=== PATIENT | female | born 1970 | race Caucasian/White ===

== ENCOUNTER 2017-04-24 07:37 | Emergency (ER) | payer BC ==
--- NOTE | 2017-04-24 07:58 | ER Document Report ---
ED Hip Pain/Injury - General Chief Complaint: Hip Pain Stated Complaint: RIGHT HIP PAIN Time Seen by Provider: 04/24/17 07:46 Mode of Arrival: Ambulatory Information source: Patient Notes: Pt is a 46 year old female who presents to the ER today for right hip/pelvis pain that woke her up from sleep last night. Pt states she's had bursitis in the left hip due to injury, but never in the right and denies injury to the right. She denies radiation of the pain down the leg or any numbness/tingling. She denies fever/chills. TRAVEL OUTSIDE OF THE [place] IN LAST 30 DAYS: No - Related Data Allergies/Adverse Reactions: acetaminophen [From Darvocet-N 100] Allergy (Verified 04/24/17 07:42) Fever aspirin [Aspirin] Allergy (Verified 04/24/17 07:42) Hallucinations morphine Allergy (Verified 04/24/17 07:42) propoxyphene napsylate [From Darvocet-N 100] Allergy (Verified 04/24/17 07:42) Fever Past Medical History - General Information source: Patient - Social History Smoking Status: Never Smoker Chew tobacco use (# tins/day): No Frequency of alcohol use: Occasional Drug Abuse: None Family History: Arthritis, DM, Hyperlipidemia, Hypertension, Malignancy, Thyroid Disfunction Pulmonary Medical History: Reports: Hx Bronchitis, Hx Pneumonia Renal/ Medical History: Reports: Hx Kidney Stones. Denies: Hx Peritoneal Dialysis Malignancy Medical History: Reports: Hx Breast Cancer, Hx Leukemia - all, Hx Lymphoma - [facility] Medical History: Reports: Hx Colonoscopy Musculoskeltal Medical History: Reports Hx Arthritis Past Surgical History: Reports: Hx Breast Surgery - lumpectomy, Hx Hysterectomy - 2008, Hx Kidney (Renal Surgery) - LITHOTRIPSY, Hx Nose Surgery, Hx Orthopedic Surgery - R hand, - Immunizations Immunizations up to date: Yes Hx Diphtheria, Pertussis, Tetanus Vaccination: Yes - 2014 Review of Systems - Review of Systems Constitutional: No symptoms reported EENT: No symptoms reported Cardiovascular: No symptoms reported Respiratory: No symptoms reported Gastrointestinal: No symptoms reported Genitourinary: No symptoms reported Female Genitourinary: No symptoms reported Musculoskeletal: See HPI Skin: No symptoms reported Hematologic/Lymphatic: No symptoms reported Neurological/Psychological: No symptoms reported Physical Exam - Vital signs Vitals: Temp Pulse Resp BP Pulse Ox 97.7 F 92 16 119/60 97 04/24/17 07:40 04/24/17 07:40 04/24/17 07:40 04/24/17 07:40 04/24/17 07:40 - Notes Notes: PHYSICAL EXAMINATION: GENERAL: Well-appearing and in no acute distress. HEAD: Atraumatic, normocephalic. EYES: Pupils equal round and reactive to light, extraocular movements intact, sclera anicteric, conjunctiva are normal. NECK: Normal range of motion, supple without lymphadenopathy LUNGS: CTAB and equal. No wheezes rales or rhonchi. HEART: Regular rate and rhythm without murmurs ABDOMEN: Soft, no tenderness. No guarding, no rebound BACK: no vertebral tenderness, normal ROM GI/: no CVA tenderness EXTREMITIES: mildly tender to lateral right hip, Normal range of motion, no pitting edema. No cyanosis. NEUROLOGICAL: Cranial nerves grossly intact. Normal sensory/motor exams. PSYCH: Normal mood, normal affect. SKIN: Warm, Dry, normal turgor, no rashes or lesions noted Course - Re-evaluation Re-evalutation: 04/24/17 11:10 pelvis x ray with hip and SI joints negative for any acute pathology, pt given muscle relaxer and mobic for the pain. - Vital Signs Vital signs: Temp Pulse Resp BP Pulse Ox 97.9 F 89 20 118/52 L 98 04/24/17 09:13 04/24/17 09:13 04/24/17 09:13 04/24/17 09:13 04/24/17 09:13 Discharge - Discharge Clinical Impression: Right hip pain Condition: Stable Disposition: HOME, SELF-CARE Additional Instructions: Return immediately for any new or worsening symptoms. Follow up with primary care provider, call tomorrow to make followup appointment. Prescriptions: Meloxicam [Mobic 15 mg Tablet] 15 mg PO DAILY #14 tablet Methocarbamol [Robaxin 500 mg Tablet] 500 mg PO QID PRN #20 tablet PRN Reason:
[2017-04-24] MEDS ORDERED: MELOXICAM 15 MG TABLET PO ONE (08:51)
[2017-04-24 09:28] VITALS: BP 118/52
--- NOTE | 2017-04-24 10:00 | RADIOLOGY REPORT (SQ) ---
EXAM DESCRIPTION: PELVIS W/OBLIQUES COMPLETED DATE/TIME: 04/24/2017 8:14 am REASON FOR STUDY: right hip pain, pelvis pain, si joint pain COMPARISON: None. NUMBER OF VIEWS: Four views. TECHNIQUE: AP and 3 oblique views of the pelvis. LIMITATIONS: None. FINDINGS: MINERALIZATION: Normal. HIPS: No acute fracture or dislocation. No worrisome bone lesions. PELVIS AND SACRUM: No acute fracture or dislocation. No worrisome bone lesions. PUBIS AND ISCHIUM: No acute fracture. LOWER LUMBAR SPINE: No significant findings as visualized. SOFT TISSUES: No findings. OTHER: No other significant finding. IMPRESSION: NEGATIVE STUDY OF THE PELVIS. TECHNICAL DOCUMENTATION: JOB ID: [id number] [employer]- All Rights Reserved
== END 2017-04-24 09:27 | disposition home or self-care (01) ==
LOC: ER 07:37
DX: M25.551 Pain in right hip (principal); Z88.6 Allergy status to analgesic agent; Z88.5 Allergy status to narcotic agent; Z85.3 Personal history of malignant neoplasm of breast; Z85.71 Personal history of Hodgkin lymphoma; Z85.6 Personal history of leukemia
CPT/HCPCS: 72190; 99283

== ENCOUNTER → 2017-05-15 | Outpatient (CLI) | payer BC ==
--- NOTE | 2017-05-15 13:28 | RADIOLOGY REPORT (SQ) ---
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 Images reviewed with lung, soft tissue and bone windows. Reconstructed coronal and sagittal MPR images reviewed. All images stored on PACS. All CT scanners at this facility use dose modulation, iterative reconstruction, and/or weight based d osing when appropriate to reduce radiation dose to as low as reasonably achievable (ALARA). [facility]: Dose Right [facility]: CareDose [facility]: Dose Right [facility]: Teradose 4D [facility]: Parkinsor CONTRAST TYPE AND DOSE: 62 cc Isovue 370- low osmolar. RENAL FUNCTION: Creatinine 0.7 BUN 12 RADIATION DOSE: Total exam DLP 613 mGy cm. LIMITATIONS: None. FINDINGS: LUNGS AND PLEURA: No opacities, nodules, masses. No pneumothorax. No effusions. HILAR AND MEDIASTINAL STRUCTURES: No identified masses or abnormal nodes. HEART AND VASCULAR STRUCTURES: No aneurysm or dissection. No central pulmonary emboli. No pericardi al effusion. HARDWARE: None in the chest. UPPER ABDOMEN: See separate report of the CT of the abdomen. THYROID AND OTHER SOFT TISSUES: No masses. No adenopathy. BONES: No significant finding. OTHER: No other significant finding. IMPRESSION: NORMAL CT OF THE CHEST WITH IV CONTRAST. TECHNICAL DOCUMENTATION: JOB ID: [id number] Quality ID # [id number]: Final reports with documentation of one or more dose reduction techniques (e.g., Au tomated exposure control, adjustment of the mA and/or kV according to patient size, use of iterative reconstruction technique) 2010 [employer]- All Rights Reserved
--- NOTE | 2017-05-15 13:37 | RADIOLOGY REPORT (SQ) ---
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 No oral contrast. Images reviewed with lung, soft tissue, and bone windows. Reconstructed coronal and sagittal MPR images reviewed. Delayed images for evaluation of the urinary system also acquired. All images stored on PACS. All CT scanners at this facility use dose modulation, iterative reconstruction, and/or weight based d osing when appropriate to reduce radiation dose to as low as reasonably achievable (ALARA). [facility]: Dose Right [facility]: CareDose [facility]: Dose Right [facility]: Teradose 4D [facility]: [employer] CONTRAST TYPE AND DOSE: contrast/concentration: Isovue 370.00 mg/ml; Total Contrast Delivered: 62.0 ml; Total Saline Delivered: 65.0 ml RENAL FUNCTION: Creatinine 0.7 BUN 12 RADIATION DOSE: Up-to-date CT equipment and radiation dose reduction techniques were employed. CTDIv ol: 4.4 - 4.5 mGy. DLP: 613 mGy-cm.. LIMITATIONS: None. FINDINGS: LOWER CHEST: See separate report of the CT of the chest. LIVER: Normal size. No masses. No dilated ducts. SPLEEN: Normal size. No focal lesions. PANCREAS: No masses. No significant calcifications. No adjacent inflammation or peripancreatic fluid collections. Pancreatic duct not dilated. GALLBLADDER: No identified stones by CT criteria. No inflammatory changes to suggest cholecystitis. ADRENAL GLANDS: No significant masses or asymmetry. RIGHT KIDNEY AND URETER: No solid masses. No significant calcifications. No hydronephrosis or hyd roureter. LEFT KIDNEY AND URETER: No solid masses. No significant calcifications. No hydronephrosis or hydr oureter. AORTA AND VESSELS: No aneurysm. No dissection. Renal arteries, SMA, celiac without stenosis. RETROPERITONEUM: No retroperitoneal adenopathy, hemorrhage or masses. BOWEL AND PERITONEAL CAVITY: No masses or inflammatory changes. No free fluid or peritoneal masses. APPENDIX: Not identified. PELVIS: No mass. No free fluid. Normal bladder. ABDOMINAL WALL: No masses. No hernias. BONES: No significant or acute findings. OTHER: No other significant finding. IMPRESSION: NO SIGNIFICANT OR ACUTE FINDING IN THE ABDOMEN OR PELVIS ON CT SCAN WITH IV CONTRAST. TECHNICAL DOCUMENTATION: JOB ID: [id number] Quality ID # 436: Final reports with documentation of one or more dose reduction techniques (e.g., Au tomated exposure control, adjustment of the mA and/or kV according to patient size, use of iterative reconstruction technique) 2010 [employer]- All Rights Reserved
== END ==
LOC: RAD 10:03
PROVIDERS: ATTEND Internal Medicine
DX: C81.18 Nodular sclerosis Hodgkin lymphoma, lymph nodes of multiple sites (principal)
CPT/HCPCS: 71260; 74177

== ENCOUNTER → 2017-05-26 | Outpatient (CLI) | payer BC ==
--- NOTE | 2017-05-26 11:50 | RADIOLOGY REPORT (SQ) ---
EXAM DESCRIPTION: MRI RT LOWER JOINT WITHOUT COMPLETED DATE/TIME: 05/26/2017 8:29 am REASON FOR STUDY: RIGHT HIP PAIN (M25.551) M25.551 PAIN IN RIGHT HIP COMPARISON: None. TECHNIQUE: Righthip images acquired and stored on PACS. Multiplanar images to include fat sensitive sequences as T1, fluid sensitive sequences as T2/STIR and gradient echo sequences. Large FOV fat and fluid sensitive sequences include pelvis and opposite hip. LIMITATIONS: None. FINDINGS: BONE CORTEX AND MARROW: No generalized marrow replacement. No occult fracture. No worriso me bone lesions. RIGHT HIP: FEMORAL HEAD: No occult fracture. No osteophytes or subchondral cysts. Normal sphericity of femoral h ead/neck junction. No acetabular dysplasia. No evidence femoroacetabular impingement. No significant effusion. ACETABULUM: Normal morphology of the bony acetabulum. There is subcortical edema along the anterior and mid right acetabular rim adjacent to a small anterior labral tear. This is best shown on axial s tir series 12, image 9, sagittal series 10, image 14, and coronal series 11, images 9-12. LABRUM: Small anterior labral tear on coronal series 11, image 9, and axial series 12, image 11. No paralabral cyst. Adjacent subcortical marrow edema in the acetabular roof TROCHANTER: No trochanteric bursal effusion. No edema/fluid at the insertions of the gluteus medius and gluteus minimus. LEFT HIP: Limited evaluation. No worrisome bone lesions. No significant effusion. PELVIS, LOWER LUMBAR SPINE, SACROILIAC JOINTS: PELVIS : No insufficiency/stress fractures. No significant degenerative changes. Sacroiliac joints normal. L SPINE: No significant osteophytes or degenerative changes of the visualized lumbar spine. MUSCLES AND SOFT TISSUES: Adductors and piriformis normal. Abductors and greater trochanteric bursa n ormal without edema or fluid. Iliopsoas bursa without fluid. Hamstring attachments without edema or t ear. PELVIC SOFT TISSUES: Post hysterectomy. Normal size ovaries with a 1.9 cm right ovarian cyst. Physi ologic pelvic fluid. SCIATIC NERVE: Identified, without masses or abnormal signal. OTHER: No other significant finding. IMPRESSION: No marrow signal abnormalities worrisome for occult fracture or bony metastatic disease. Small anterior right hip labral tear with adjacent subcortical edema in acetabular bony rim. TECHNICAL DOCUMENTATION: JOB ID: [id number] [employer]- All Rights Reserved
== END ==
LOC: RAD 06:49
PROVIDERS: ATTEND Internal Medicine
DX: C81.18 Nodular sclerosis Hodgkin lymphoma, lymph nodes of multiple sites (principal); C50.012 Malignant neoplasm of nipple and areola, left female breast

== ENCOUNTER → 2017-07-06 | Day surgery (SDC) | payer BC ==
--- NOTE | 2017-07-06 16:22 | RADIOLOGY REPORT (SQ) ---
EXAM DESCRIPTION: ARTHRO HIP INJ W/ANESTHESIA; FLUORO/NEEDLE PLACEMENT COMPLETED DATE/TIME: 07/06/2017 2:18 pm REASON FOR STUDY: RIGHT HIP PAIN (M25.551) M25.551 PAIN IN RIGHT HIP COMPARISON: CT abdomen pelvis 05/15/2017 FLUOROSCOPY TIME: 16 seconds 3 digital radiographic images saved to PACS. LIMITATIONS: None. PROCEDURE: Procedure, risks, benefits and alternatives explained to patient who then gave written c onsent. The right hip was marked and a time-out was called for correct marking verification. Entry site marked using fluoroscopic guidance. Hip prepped and draped using sterile technique. Local ane sthesia achieved using 6 mL of 1% lidocaine injection. 22 gauge spinal needle introduced into the zainab int space under direct fluoroscopic visualization. Non-ionic contrast instilled to confirm intra-art icular position. Dilute gadolinium solution then injected. Needle removed and entry site covered w ith sterile bandage. No immediate complications noted. TECHNIQUE: Digital images acquired during fluoroscopy and stored on PACS. Patient immediately take n to the MR suite for additional imaging. INJECTION LOCATION: Right hip joint CONTRAST TYPE AND AMOUNT: 1 mL of Isovue-300 was injected to confirm intra-articular needle placement followed by 9 mL of dilute gadolinium for MR arthrogram IMPRESSION: SUCCESSFUL NEEDLE PLACEMENT AND INJECTION FOR RIGHT HIP MR ARTHROGRAM. COMMENT: Quality ID 145: Final reports for procedures using fluoroscopy that document radiation exp osure indices, or exposure time and number of fluorographic images (if radiation exposure indices are not available) TECHNICAL DOCUMENTATION: JOB ID: [id number] [employer]- All Rights Reserved
--- NOTE | 2017-07-06 16:33 | RADIOLOGY REPORT (SQ) ---
EXAM DESCRIPTION: MRI LT LOWER JOINT WITH COMPLETED DATE/TIME: 07/06/2017 2:31 pm REASON FOR STUDY: RIGHT HIP PAIN (M25.551) M25.551 PAIN IN RIGHT HIP COMPARISON: MRI RIGHT HIP 05/26/2017 TECHNIQUE: Post arthrogram imaging is performed using T1 and T1 and T2 fat saturated sequences of th e pelvis and specific hip of interest. LIMITATIONS: None. FINDINGS: JOINT DISTENSION: Adequate. No loose body. BONE MARROW: No edema. No marrow replacement. The bone marrow edema seen along the anterior right ac etabular roof on MRI 05/26/2017 is no longer present. FEMORAL HEAD, NECK, AND ACETABULUM: No occult fracture. No osteophytes or subchondral cysts. Normal s phericity of femoral head/neck junction. No acetabular dysplasia. No evidence of femoroacetabular imp ingement. PUBIC RAMI AND ISCHIUM: No occult fracture. SACRUM AND DEMETRIO: SI joints normal in signal. No occult fracture. EFFUSIONS: None. LABRUM AND CARTILAGE: Tiny anterior labral tear on sagittal image 14, no paralabral cysts. MUSCLES AND SOFT TISSUES: Adductors and piriformis normal. Abductors and greater trochanteric bursa n ormal without edema or fluid. Iliopsoas bursa without fluid. Hamstring attachments without edema or t ear. PELVIC SOFT TISSUES: No masses or adenopathy. Post hysterectomy. Normal size ovaries. Physiologic free pelvic fluid. SCIATIC NERVE: Identified without masses. OTHER: No other significant finding. IMPRESSION: Tiny anterior right hip acetabular labral tear. Marrow edema seen along the right acetabular roof on 05/26/2017 has resolved. TECHNICAL DOCUMENTATION: JOB ID: [id number] [employer]- All Rights Reserved
== END ==
LOC: RAD 12:50
PROVIDERS: ATTEND Orthopaedic Surgery
PROC: BQ00ZZZ Plain Radiography of Right Hip (ICD-10-PCS; principal; 2017-07-06)
DX: M25.551 Pain in right hip (principal)
CPT/HCPCS: 73722; 77002; 27095; A9576

== ENCOUNTER → 2017-09-28 | Outpatient (CLI) | payer BC ==
--- NOTE | 2017-09-28 08:07 | RADIOLOGY REPORT (SQ) ---
EXAM DESCRIPTION: MRI HEAD WITHOUT COMPLETED DATE/TIME: 09/28/2017 7:46 am REASON FOR STUDY: MEMORY LOSS (R41.3) R41.3 OTHER AMNESIA COMPARISON: MRI brain 12/16/2011 TECHNIQUE: Multiplanar imaging includes non-contrasted T1, T2, FLAIR, and diffusion with ADC map seq uences. Images stored on PACS. LIMITATIONS: None. FINDINGS: ANATOMY: No anomalies. Normal vascular flow voids. Pituitary fossa normal. CSF SPACES: Normal in size and contour. No hemorrhage. CEREBRUM: Sulci and gyri normal in size and contour. Normal white matter signal on FLAIR imaging. No evidence of hemorrhage, mass, or extraaxial fluid collection. POSTERIOR FOSSA: No signal alteration. No hemorrhage. No edema, masses or mass effect. Internal bhavna tory canals, cerebello-pontine angles, mastoids normal. DIFFUSION IMAGING: Negative for acute or sub-acute infarction. ORBITS: No masses. Globes normal. PARANASAL SINUSES: Diffuse mucous membrane thickening in the bilateral ethmoid and bilateral maxilla ry sinuses OTHER: No other significant finding. IMPRESSION: INFLAMMATORY CHANGES IN THE ETHMOID AND MAXILLARY SINUSES. OTHERWISE, UNREMARKABLE MRI OF THE BRAIN WITHOUT INTRAVENOUS GADOLINIUM CONTRAST. EVIDENCE OF ACUTE STROKE: NO. TECHNICAL DOCUMENTATION: JOB ID: [id number]- All Rights Reserved
== END ==
LOC: RAD 07:00
PROVIDERS: ATTEND Family Medicine
DX: R41.3 Other amnesia (principal)
CPT/HCPCS: 70551

== ENCOUNTER → 2017-10-26 | Outpatient (CLI) | payer BC | LOC: LAB 12:24 | PROVIDERS: ATTEND Otolaryngology | DX: J30.1 Allergic rhinitis due to pollen (principal) | CPT/HCPCS: 36415 ==

== ENCOUNTER → 2017-11-03 | Outpatient (CLI) | payer BC | LOC: LAB 12:41 | PROVIDERS: ATTEND Otolaryngology | DX: J30.1 Allergic rhinitis due to pollen (principal); Z53.8 Procedure and treatment not carried out for other reasons ==

== ENCOUNTER → 2017-11-06 | Outpatient (CLI) | payer BC | LOC: LAB 07:45 | PROVIDERS: ATTEND Otolaryngology | DX: J30.1 Allergic rhinitis due to pollen (principal) | CPT/HCPCS: 36415 ==

== ENCOUNTER → 2017-11-09 | Outpatient (CLI) | payer BC ==
--- NOTE | 2017-11-09 08:48 | RADIOLOGY REPORT (SQ) ---
EXAM DESCRIPTION: CT FACIAL AREA WITHOUT; EMPLOYEE COMPLETED DATE/TIME: 11/09/2017 7:32 am REASON FOR STUDY: CHRONIC MAXILLARY SINUSITIS (J32.0); CHRONIC MAXILLARY SINUSITIS J32.0 CHRONIC MA XILLARY SINUSITIS COMPARISON: None. TECHNIQUE: Noncontrast scanning through the paranasal sinuses using bone algorithm. Reconstructed MPR images reviewed. All images stored on PACS. Images acquired for image guided surgery. All CT scanners at this facility use dose modulation, iterative reconstruction, and/or weight based d osing when appropriate to reduce radiation dose to as low as reasonably achievable (ALARA). [facility]: Dose Right [facility]: CareDose [facility]: Dose Right [facility]: Teradose 4D [facility]: RRsat RADIATION DOSE: mGy. FINDINGS: NASAL PASSAGES: Clear. No polyps or masses. OSTEOMEATAL UNITS AND NASOFRONTAL DUCTS: Bilateral ostiomeatal units occluded due to mucous membrane thickening. No agger nasi or Sherman cells. MAXILLARY SINUSES: Diffuse mucous membrane thickening in both maxillary sinuses. No fluid levels. ETHMOID SINUSES: Diffuse mucous membrane thickening. SPHENOID SINUSES: Diffuse mucous membrane thickening. No fluid levels. No sphenoethmoid air cells or pneumatized pterygoid recess. No pneumatized dorsal sella. FRONTAL SINUSES: Well-pneumatized and clear. MASTOID AIR CELLS: Clear. ORBITS: Normal and symmetrical. NASAL SEPTUM: Midline. No nasal septal spurs. TEMPOROMANDIBULAR JOINTS: Normal. TURBINATES: No pneumatized turbinates. MUCOPERIOSTEAL THICKENING: No. MUCOCELE: No. OTHER: No other significant findings. IMPRESSION: DIFFUSE MUCOUS MEMBRANE THICKENING IN THE MAXILLARY, ETHMOID, AND SPHENOID SINUSES. TECHNICAL DOCUMENTATION: JOB ID: [id number] Quality ID # 436: Final reports with documentation of one or more dose reduction techniques (e.g., Au tomated exposure control, adjustment of the mA and/or kV according to patient size, use of iterative reconstruction technique) 2010 [employer]- All Rights Reserved Reading location - IP/workstation name: [email or web address]
--- NOTE | 2017-11-09 08:48 | RADIOLOGY REPORT (SQ) ---
EXAM DESCRIPTION: CT FACIAL AREA WITHOUT; EMPLOYEE COMPLETED DATE/TIME: 11/09/2017 7:32 am REASON FOR STUDY: CHRONIC MAXILLARY SINUSITIS (J32.0); CHRONIC MAXILLARY SINUSITIS J32.0 CHRONIC MA XILLARY SINUSITIS COMPARISON: None. TECHNIQUE: Noncontrast scanning through the paranasal sinuses using bone algorithm. Reconstructed MPR images reviewed. All images stored on PACS. Images acquired for image guided surgery. All CT scanners at this facility use dose modulation, iterative reconstruction, and/or weight based d osing when appropriate to reduce radiation dose to as low as reasonably achievable (ALARA). [facility]: Dose Right [facility]: CareDose [facility]: Dose Right [facility]: Teradose 4D [facility]: [employer] RADIATION DOSE: mGy. FINDINGS: NASAL PASSAGES: Clear. No polyps or masses. OSTEOMEATAL UNITS AND NASOFRONTAL DUCTS: Bilateral ostiomeatal units occluded due to mucous membrane thickening. No agger nasi or Sherman cells. MAXILLARY SINUSES: Diffuse mucous membrane thickening in both maxillary sinuses. No fluid levels. ETHMOID SINUSES: Diffuse mucous membrane thickening. SPHENOID SINUSES: Diffuse mucous membrane thickening. No fluid levels. No sphenoethmoid air cells or pneumatized pterygoid recess. No pneumatized dorsal sella. FRONTAL SINUSES: Well-pneumatized and clear. MASTOID AIR CELLS: Clear. ORBITS: Normal and symmetrical. NASAL SEPTUM: Midline. No nasal septal spurs. TEMPOROMANDIBULAR JOINTS: Normal. TURBINATES: No pneumatized turbinates. MUCOPERIOSTEAL THICKENING: No. MUCOCELE: No. OTHER: No other significant findings. IMPRESSION: DIFFUSE MUCOUS MEMBRANE THICKENING IN THE MAXILLARY, ETHMOID, AND SPHENOID SINUSES. TECHNICAL DOCUMENTATION: JOB ID: [id number] Quality ID # 436: Final reports with documentation of one or more dose reduction techniques (e.g., Au tomated exposure control, adjustment of the mA and/or kV according to patient size, use of iterative reconstruction technique) 2010 [employer]- All Rights Reserved Reading location - IP/workstation name: [email or web address]
== END ==
LOC: RAD 07:11
PROVIDERS: ATTEND Otolaryngology
DX: J32.0 Chronic maxillary sinusitis (principal)
CPT/HCPCS: 70486

== ENCOUNTER → 2018-07-20 | Outpatient (CLI) | payer BC ==
[2018-07-20 07:24] LABS: ABSOLUTE BASOPHILS # (AUTO) 0.1 10^3/uL (0.0-0.2); ABSOLUTE EOSINOPHILS # (AUTO) 0.3 10^3/uL (0.0-0.6); ABSOLUTE LYMPHOCYTES (AUTO) 1.3 10^3/uL (0.5-4.7); ABSOLUTE MONOCYTES (AUTO) 0.6 10^3/uL (0.1-1.4); ABSOLUTE NEUT (AUTO) 4.3 10^3/uL (1.7-8.2); BASOPHILS % (AUTO) 1.2 % (0-2); EOSINOPHILS % (AUTO) 4.3 % (0-6); HEMATOCRIT 44.1 % (36.0-47.0); HEMOGLOBIN 15.6 g/dL (12.0-15.5); LYMPHOCYTES % (AUTO) 19.6 % (13-45); MEAN CORPUSCULAR HEMOGLOBIN 33.5 pg (27.0-33.4); MEAN CORPUSCULAR HGB CONC 35.3 g/dL (32.0-36.0); MEAN CORPUSCULAR VOLUME 95 fl (80-97); MONOCYTES % (AUTO) 9.1 % (3-13); PLATELET COUNT 248 10^3/uL (150-450); RED BLOOD COUNT 4.65 10^6/uL (3.72-5.28); RED CELL DISTRIBUTION WIDTH 12.6 % (11.5-14.0); SEGMENTED NEUTROPHILS % (AUTO) 65.8 % (42-78); TOTAL CELLS COUNTED % (AUTO) 100 %; WHITE BLOOD COUNT 6.6 10^3/uL (4.0-10.5)
[2018-07-20 07:45] LABS: ALANINE AMINOTRANSFERASE 14 U/L (9-52); ALBUMIN 4.6 g/dL (3.5-5.0); ALKALINE PHOSPHATASE 71 U/L (38-126); ANION GAP 11 (5-19); ASPARTATE AMINO TRANSFERASE 19 U/L (14-36); BILIRUBIN,DIRECT 0.3 mg/dL (0.0-0.4); BILIRUBIN,TOTAL 0.5 mg/dL (0.2-1.3); BLOOD UREA NITROGEN 12 mg/dL (7-20); CALCIUM 9.4 mg/dL (8.4-10.2); CARBON DIOXIDE 26 mmol/L (22-30); CHLORIDE 107 mmol/L (98-107); CHOLESTEROL 148.13 mg/dL (0-200); GLUCOSE 93 mg/dL (75-110); POTASSIUM 4.3 mmol/L (3.6-5.0); SODIUM 144.2 mmol/L (137-145); TOTAL PROTEIN 7.5 g/dL (6.3-8.2); TRIGLYCERIDES 198 mg/dL (<150)
[2018-07-20 07:56] LABS: DIRECT LDL 80 mg/dL (<100); VLDL CHOLESTEROL 39.6 mg/dL (10-31)
== END ==
LOC: LAB 06:53
PROVIDERS: ATTEND Internal Medicine Cardiovascular Disease
DX: I10 Essential (primary) hypertension (principal); R07.9 Chest pain, unspecified
CPT/HCPCS: 36415; 80053; 80061; 83036; 85025

== ENCOUNTER 2018-08-24 06:51 | Emergency (ER) | payer BC ==
[2018-08-24 06:58] VITALS: BP 118/51
[2018-08-24] MEDS ORDERED: IBUPROFEN 800 MG TABLET PO ONE (07:17)
[2018-08-24] MEDS ORDERED: ONDANSETRON HCL 8 MG TABLET PO ONE (07:17)
[2018-08-24] MEDS ORDERED: PENICILLIN V POTASSIUM 500 MG TABLET PO ONE (07:17)
--- NOTE | 2018-08-24 07:23 | ER Document Report ---
ED ENT - General Chief Complaint: Ear Pain Stated Complaint: EAR PROBLEM Time Seen by Provider: 08/24/18 07:17 Mode of Arrival: Ambulatory Information source: Patient Notes: 47-year-old female presents to ED for complaint of bilateral ear pain sore throat and multiple dental pain worse on the right upper wisdom tooth. She is scheduled to have multiple teeth fixed soon. She has some redness and swelling around the tooth #1. Patient is alert and oriented respirations regular and unlabored speaking in full sentences walking with a even steady gait. TRAVEL OUTSIDE OF THE [place] IN LAST 30 DAYS: No - HPI Patient complains to provider of: Dental problem, Ear problem, Nose problem, Throat problem Onset: Other Onset/Duration: Gradual - Several days Quality of pain: Achy, Sharp Severity: Moderate Pain Level: 3 Context: Recent Illness Location of pain: Nose, Sinus, Throat, Tooth Associated symptoms: Chills, Ear pain, Runny nose, Sinus drainage, Sore throat, Other - Dental pain Similar symptoms previously: Yes Recently seen / treated by doctor: No - Related Data Allergies/Adverse Reactions: acetaminophen [From Darvocet-N 100] Allergy (Verified 04/24/17 07:42) Fever aspirin [Aspirin] Allergy (Verified 04/24/17 07:42) Hallucinations morphine Allergy (Verified 04/24/17 07:42) propoxyphene napsylate [From Darvocet-N 100] Allergy (Verified 04/24/17 07:42) Fever Past Medical History - General Information source: Patient - Social History Smoking Status: Current Every Day Smoker Cigarette use (# per day): Yes - 3 cigarettes a day Chew tobacco use (# tins/day): No Smoking Education Provided: Yes - 4 minutes Frequency of alcohol use: Occasional Drug Abuse: None Lives with: Family Family History: Arthritis, DM, Hyperlipidemia, Hypertension, Malignancy, Thyroid Disfunction Patient has suicidal ideation: No Patient has homicidal ideation: No - Past Medical History Cardiac Medical History: Reports: Hx Heart Murmur, Other - Heart valve problem Pulmonary Medical History: Reports: Hx Bronchitis, Hx Pneumonia EENT Medical History: Reports: None Neurological Medical History: Reports: Hx Migraine Endocrine Medical History: Reports: None Renal/ Medical History: Reports: Hx Kidney Stones Malignancy Medical History: Reports: Hx Breast Cancer, Hx Leukemia - all, Hx Lymphoma - hodgkins GI Medical History: Reports: Hx Colonoscopy Musculoskeletal Medical History: Reports Hx Arthritis, Reports Hx Musculoskeletal Deformity, Reports Hx Musculoskeletal Trauma Past Surgical History: Reports: Hx Breast Surgery - lumpectomy, Hx Hysterectomy, Hx Kidney (Renal Surgery) - LITHOTRIPSY, Hx Nose Surgery, Hx Orthopedic Surgery - R hand,, Other - Eye surgery - Immunizations Immunizations up to date: Yes Hx Diphtheria, Pertussis, Tetanus Vaccination: Yes - 2014 Review of Systems - Review of Systems Constitutional: Recent illness EENT: Ear pain, Nose congestion, Nose discharge, Sinus pressure, Sinus discharge, Throat pain, Dental problem Cardiovascular: No symptoms reported Respiratory: Cough Gastrointestinal: No symptoms reported Genitourinary: No symptoms reported Female Genitourinary: No symptoms reported Musculoskeletal: No symptoms reported Skin: No symptoms reported Neurological/Psychological: No symptoms reported -: Yes All other systems reviewed and negative Physical Exam - Vital signs Vitals: Temp Pulse Resp BP Pulse Ox 98.4 F 111 H 20 118/51 L 96 08/24/18 06:56 08/24/18 06:56 08/24/18 06:56 08/24/18 06:56 08/24/18 06:56 Interpretation: Normal, Tachycardic - 104. No: Hypoxic - 99, Tachypneic - 18 - General General appearance: Appears well, Alert - HEENT Head: Normocephalic, Atraumatic Eyes: Normal Pupils: PERRL Ears: Normal External canal: Normal Tympanic membrane: Normal Sinus: Normal Nasal: Purulent discharge, Swelling Mouth/Lips: Caries Mucous membranes: Normal Teeth diagram: 1 - Cavity to tooth 1 and 2 and multiple other teeth throughout the mouth. She has plans for treatment of these tooth in the near future she does have redness and swelling around tooth #1 Pharynx: Erythema, Post nasal drainage. No: Exudate Neck: Anterior cervical chain - Respiratory Respiratory status: No respiratory distress Chest status: Nontender Breath sounds: Normal Chest palpation: Normal - Cardiovascular Rhythm: Regular Heart sounds: Normal auscultation Murmur: No - Abdominal Inspection: Normal Distension: No distension Bowel sounds: Normal Tenderness: Nontender Organomegaly: No organomegaly - Back Back: Normal, Nontender - Extremities General upper extremity: Normal inspection, Nontender, Normal color, Normal ROM, Normal temperature General lower extremity: Normal inspection, Nontender, Normal color, Normal ROM, Normal temperature, Normal weight bearing. No: Jose Luis's sign - Neurological Neuro grossly intact: Yes Cognition: Normal Orientation: AAOx4 [place] Coma Scale Eye Opening: Spontaneous Lilly Coma Scale Verbal: Oriented Lilly Coma Scale Motor: Obeys Commands [place] Coma Scale Total: 15 Speech: Normal Motor strength normal: LUE, RUE, LLE, RLE Sensory: Normal - Psychological Associated symptoms: Normal affect, Normal mood - Skin Skin Temperature: Warm Skin Moisture: Dry Skin Color: Normal Course - Re-evaluation Re-evalutation: 08/24/18 07:40 Strep test negative. Will treat with Pen-Vee K for her dental pain and dis charged home with prescription for pen VK. Patient to follow-up with her dentist as discussed with her. Patient also has cough cold congestion will give her education or cough cold treatments. - Vital Signs Vital signs: Temp Pulse Resp BP Pulse Ox 98.4 F 111 H 20 118/51 L 96 08/24/18 06:56 08/24/18 06:56 08/24/18 06:56 08/24/18 06:56 08/24/18 06:56 Discharge - Discharge Clinical Impression: Pain due to dental caries URI (upper respiratory infection) Qualifiers: URI type: unspecified URI Qualified Code(s): J06.9 - Acute upper respiratory infection, unspecified Disposition: HOME, SELF-CARE Additional Instructions: UPPER RESPIRATORY ILLNESS: You have a viral infection of the respiratory passages -- a "cold." This common infection causes nasal congestion, drainage, and often sore throat and cough. It is highly contagious. The disease usually lasts about 10 to 14 days. There is no "cure" for the viral infection -- it must run its course. If there is a complication, such as bacterial infection in the nose, sinuses, middle ear, or bronchial tubes, antibiotics may be required. The antibiotics won't affect the virus. Drink plenty of fluids. A humidifier may help. An expectorant medication or decongestant may make you more comfortable. Use acetaminophen or ibuprofen for fever or aches. See the doctor if fever persists over two days, if there is any significant worsening of your symptoms, or if you simply fail to improve as expected. COUGH-SUPPRESSANT & EXPECTORANT MEDICATION: You are to use a cough medication as needed for relief of symptoms. This medicine is a combination of an expectorant (to make the mucous thinner and more easily "coughed up") and a cough suppressant (to reduce the frequency of coughing). The cough-suppressant medicine is related to narcotics. You may experience mild nausea and sleepiness. Some patients who are very sensitive to narcotics may have stomach pain from this medicine. Taking the medicine with food reduces these side effects. Do not drive or work with machinery until you know how this medicine affects you. The expectorant should have no side effects. Iodine-containing expectorants (such as organidin) should not be taken by persons with active thyroid disease unless approved by your doctor. Call the doctor if you develop shortness of breath, hives, rash, itching, lightheadedness, or severe nausea and vomiting. TOOTHACHE: Your pain is due to dental decay. The tooth must be repaired in order for you to feel better. You will, therefore, be referred to a dentist. We do not have dentists on the staff at [facility]. Severe swelling or drainage around a tooth usually means a dental abscess. This also requires evaluation and treatment by the dentist, but antibiotics may be prescribed while awaiting dental treatment. You should be rechecked immediately if you develop major swelling of the face, increasing pain, a lump in the jaw or gums, headache, difficulty swallowing, or fever. PENICILLIN V K: You have been given a prescription for Penicillin VK. Your physician has determined that this is the best antibiotic for your condition. Pen VK can be taken with meals, however more of the antibiotic gets into the bloodstream if it's taken on an empty stomach. Penicillin usually has no side effects. However, allergy to penicillins is common. If you have had an allergic reaction to any drug of the penicillin family, you should never take any other penicillin. Notify your doctor at once if you develop hives, itching, swelling, faintness, or shortness of breath. SMOKING: If you smoke, you should stop smoking. The tar and chemicals in cigarette smoke are harmful. Smoking has been shown to cause: emphysema chronic bronchitis lung cancer mouth and throat cancer stomach and pancreas cancer premature aging defects In addition, smoking increases ear and lung infections in children of smokers. FOLLOW-UP CARE: You have been referred for follow-up care to the dentists listed below. Call the dentists office for an appointment as you were instructed or within the next two days. If you experience worsening or a significant change in your symptoms, notify the physician immediately or return to the Emergency Department at any time for re-evaluation. [facility] [address], [place] Monday mornings, by appointment [facility] [address] [place] [address] [facility] [address] [facility] [address] [facility] [address] [email or web address] [address] [place] [address] Monday- 8:00am to 5:00 pm Will see patients from other [facility]. Charges based on income and family size and accepts Medicare, Medicaid, and Insurances Will pull molars [facility] [address] Hours of Operation 8:00 am - 4:30 pm weekdays The following dental offices accept Medicaid: [facility] [address]. [address] Dr[address] V[address] Dr. Pickard Dr. Huynh Enrico Wolf, Chu, and [place] oral surgery Dr. Quintanilla ([place]) Dr. Nelson ([place]) [facility] Drs. Keyonna ([place]) Dr. Lujan ([place]) [facility] Dr. Marie ([place]) Drs. Ramirez and ([place]) Medicaid Care Line Prescriptions: Penicillin V Potassium [Penicillin Vk 500 mg Tablet] 500 mg PO BID #20 tablet Forms: Smoking Cessation Education, Return to Work Referrals: HUSSEIN JAMES MD [NO LOCAL MD] - Follow up in 3-5 days
== END 2018-08-24 07:57 | disposition home or self-care (01) ==
LOC: ER 06:51
DX: K02.9 Dental caries, unspecified (principal); J06.9 Acute upper respiratory infection, unspecified; H92.03 Otalgia, bilateral; F17.210 Nicotine dependence, cigarettes, uncomplicated; Z88.6 Allergy status to analgesic agent
CPT/HCPCS: 99406; 99283; 87070; 87880; S0119

== ENCOUNTER → 2019-01-30 | Outpatient (CLI) | payer BC ==
[2019-01-30 07:29] LABS: ALANINE AMINOTRANSFERASE 19 U/L (9-52); ALBUMIN 4.4 g/dL (3.5-5.0); ALKALINE PHOSPHATASE 60 U/L (38-126); ANION GAP 13 (5-19); ASPARTATE AMINO TRANSFERASE 15 U/L (14-36); BILIRUBIN,DIRECT 0.2 mg/dL (0.0-0.4); BILIRUBIN,TOTAL 0.3 mg/dL (0.2-1.3); BLOOD UREA NITROGEN 15 mg/dL (7-20); CALCIUM 9.6 mg/dL (8.4-10.2); CARBON DIOXIDE 21 mmol/L (22-30); CHLORIDE 108 mmol/L (98-107); CHOLESTEROL 136.68 mg/dL (0-200); GLUCOSE 93 mg/dL (75-110); POTASSIUM 4.1 mmol/L (3.6-5.0); SODIUM 142.2 mmol/L (137-145); TOTAL PROTEIN 7.2 g/dL (6.3-8.2); TRIGLYCERIDES 178 mg/dL (<150)
[2019-01-30 07:40] LABS: DIRECT LDL 64 mg/dL (<100)
[2019-01-30 07:49] LABS: VLDL CHOLESTEROL 35.6 mg/dL (10-31)
== END ==
LOC: LAB 06:51
PROVIDERS: ATTEND Internal Medicine Cardiovascular Disease
DX: I35.9 Nonrheumatic aortic valve disorder, unspecified (principal)
CPT/HCPCS: 36415; 80048; 80061; 80076; 84443

== ENCOUNTER → 2019-04-06 | Outpatient (CLI) | payer BC ==
[2019-04-06 07:28] LABS: ABSOLUTE BASOPHILS # (AUTO) 0.1 10^3/uL (0.0-0.2); ABSOLUTE EOSINOPHILS # (AUTO) 0.3 10^3/uL (0.0-0.6); ABSOLUTE LYMPHOCYTES (AUTO) 1.1 10^3/uL (0.5-4.7); ABSOLUTE MONOCYTES (AUTO) 0.8 10^3/uL (0.1-1.4); ABSOLUTE NEUT (AUTO) 5.2 10^3/uL (1.7-8.2); BASOPHILS % (AUTO) 1.9 % (0-2); EOSINOPHILS % (AUTO) 3.7 % (0-6); HEMATOCRIT 44.8 % (36.0-47.0); HEMOGLOBIN 15.7 g/dL (12.0-15.5); LYMPHOCYTES % (AUTO) 14.7 % (13-45); MEAN CORPUSCULAR HEMOGLOBIN 33.7 pg (27.0-33.4); MEAN CORPUSCULAR VOLUME 96 fl (80-97); MONOCYTES % (AUTO) 10.6 % (3-13); PLATELET COUNT 223 10^3/uL (150-450); RED BLOOD COUNT 4.65 10^6/uL (3.72-5.28); SEGMENTED NEUTROPHILS % (AUTO) 69.1 % (42-78); TOTAL CELLS COUNTED % (AUTO) 100 %; WHITE BLOOD COUNT 7.6 10^3/uL (4.0-10.5)
[2019-04-06 07:51] LABS: ALBUMIN 4.5 g/dL (3.5-5.0); ALKALINE PHOSPHATASE 82 U/L (38-126); ANION GAP 11 (5-19); ASPARTATE AMINO TRANSFERASE 22 U/L (14-36); BILIRUBIN,DIRECT 0.2 mg/dL (0.0-0.4); BILIRUBIN,TOTAL 0.8 mg/dL (0.2-1.3); BLOOD UREA NITROGEN 13 mg/dL (7-20); CALCIUM 9.7 mg/dL (8.4-10.2); CARBON DIOXIDE 24 mmol/L (22-30); CHLORIDE 103 mmol/L (98-107); GLUCOSE 111 mg/dL (75-110); POTASSIUM 4.3 mmol/L (3.6-5.0); TOTAL PROTEIN 7.2 g/dL (6.3-8.2)
== END ==
LOC: LAB 07:03
PROVIDERS: ATTEND Internal Medicine
DX: C81.18 Nodular sclerosis Hodgkin lymphoma, lymph nodes of multiple sites (principal)
CPT/HCPCS: 36415; 80053; 83615; 85025